=== PATIENT | female | born 1990 | race African-American/Black ===

== ENCOUNTER 2020-07-12 08:09 | Emergency (ER) | payer OTHER ==
[~2020-07-12] VITALS: Ht 172.7 cm; Wt 56.2 kg
[2020-07-12 08:29] VITALS: Ht 172.7 cm; Wt 56.2 kg
[2020-07-12 09:24] LABS: BASOPHIL % 0.6 % (0.2-1.3); PLATELET COUNT 247 x10^3mcL (179-408)
[2020-07-12 09:25] LABS: CALCIUM 9.5 mg/dL (8.5-10.1); CHLORIDE SERUM 102 mmol/L (98-107); CREATININE SERUM 0.7 mg/dL (0.6-1.0); GFR1 > 60 mL/min; GLUCOSE SERUM 115 mg/dL (74-106); POTASSIUM SERUM 3.8 mmol/L (3.5-5.1); SODIUM SERUM 137 mmol/L (136-145)
[2020-07-12 09:39] LABS: ALBUMIN 3.6 g/dL (3.4-5.0); ALKALINE PHOSPHATASE 48 U/L (46-116); ALT/SGPT 28 U/L (14-59); AST/SGOT 17 U/L (15-37); BILIRUBIN TOTAL 0.2 mg/dL (0.20-1.00)
[2020-07-12 09:40] LABS: RED CELL DISTRIBUTION WIDTH 17.5 % (12.3-17.7)
[2020-07-12 09:54] LABS: AMPHETAMINE QUAL UR NONE DETECTED (See below)
[2020-07-12 11:57] VITALS: BP 102/60
== END 2020-07-12 11:57 | disposition home or self-care (01) ==
LOC: ED 08:09
PROVIDERS: Emergency Medicine
DX: G24.01 Drug induced subacute dyskinesia (principal)